=== PATIENT | male | born 1985 | race Caucasian/White ===

== ENCOUNTER 2019-04-25 09:53 | Emergency (ER) | payer BC, OTHER ==
[2019-04-25] MEDS: ONDANSETRON (ODT) 4 MG TAB ODT (11:17)
== END 2019-04-25 12:25 | disposition home or self-care (01) ==
LOC: FTE 09:53
DX: R11.10 Vomiting, unspecified (principal); R19.7 Diarrhea, unspecified; Z87.891 Personal history of nicotine dependence
CPT/HCPCS: 99283; Z7502